=== PATIENT | female | born 1935 | race Caucasian/White ===

== ENCOUNTER 2021-11-25 19:47 | Observation (INO) | payer OTHER ==
[2021-11-25] MEDS ORDERED: ACETAMINOPHEN 1000 MG/100 ML BAG IVPB ONE (20:12)
[2021-11-25] MEDS ORDERED: ONDANSETRON 4 MG/2 ML VIAL IVPUSH ONE ×2 (20:12→23:59)
[2021-11-25 21:20] LABS: BASO % 0.4 % (0-2.0); EOS % 1.2 % (0-4.5); HEMATOCRIT 37.6 % (32.4-45.2); HEMOGLOBIN 13.2 GM/dL (10.7-15.3); MCHC 35.1 g/dl (32.0-36.0); MEAN CELL VOLUME 82.6 fl (80-96); MEAN PLT VOLUME 8.7 fl (7.5-11.1); MONO % 6.4 % (3.8-10.2); PLATELET COUNT 425 10^3/uL (134-434); RBC 4.55 M/mm3 (3.60-5.2); RDW 15.1 % (11.6-15.6); WHITE BLOOD COUNT 8.5 K/mm3 (4.0-10.0)
[2021-11-25 21:25] LABS: CALCIUM 9.5 mg/dL (8.5-10.1); INR 1.1 (0.83-1.09); PROTHROMBIN TIME (PATIENT) 12.7 SEC (9.7-13.0)
[2021-11-25 21:26] LABS: BLOOD UREA NITROGEN 12.8 mg/dL (7-18); MAGNESIUM 1.6 mg/dL (1.8-2.4)
[2021-11-25] MEDS ORDERED: MAGNESIUM SULF 50% (8.12 MEQ/2 ML-1 GM VIAL) IVPB ONE (21:26)
[2021-11-25 21:28] LABS: CREATININE 0.8 mg/dL (0.55-1.3)
[2021-11-25 21:30] LABS: BILIRUBIN,TOTAL 0.6 mg/dL (0.2-1); TOT PROT 7.1 g/dl (6.4-8.2)
[2021-11-25] MEDS ORDERED: MAGNESIUM SULFATE IN WATER 2 GM/50 ML IVPB IVPB ONE (21:31)
[2021-11-25 21:37] LABS: LACTIC ACID 2.5 mmol/L (0.4-2.0)
[2021-11-25] MEDS ORDERED: METOCLOPRAMIDE HCL INJECTION 10 MG/2 ML VIAL IVPB ONE (22:05)
[2021-11-25] MEDS ORDERED: METOCLOPRAMIDE HCL INJECTION 10 MG/2 ML VIAL ONE (22:05)
[2021-11-25] MEDS ORDERED: SODIUM CHLORIDE 0.9% 500 ML INFUS.BAG IV ONE (22:46)
[2021-11-25 22:56] LABS: EPI CELLS 22 /uL (0-25.1); HYALINE CASTS 0 /uL (0-3.1); PH,URINE 8.5 (5.0-8.0); URINE APPEARANCE CLEAR; URINE BACTERIA 3504 /uL (0-1359); URINE BILIRUBIN NEGATIVE (NEGATIVE); URINE COLOR YELLOW; URINE GLUCOSE (UA) NEGATIVE (NEGATIVE); URINE KETONE 3+ (NEGATIVE); URINE LEUK ESTERASE 1+ (NEGATIVE); URINE NITRITE NEGATIVE (NEGATIVE); URINE PROTEIN NEGATIVE (NEGATIVE); URINE RBC 15 /uL (0-23.9); URINE WBC 72 /uL (0-25.8)
[2021-11-25] MEDS ORDERED: CEFTRIAXONE 1,000 MG in DEXTROSE 5%-WATER - 50 ML IVPB ONE (23:28)
[2021-11-25] MEDS ORDERED: CEFTRIAXONE 1 GM/50 ML BAG ONE (23:44)
[2021-11-26] MEDS ORDERED: ONDANSETRON 4 MG/2 ML VIAL ONE (01:03)
[2021-11-26 04:21] VITALS: BMI 31.2
[2021-11-26 08:57] LABS: BASO % 0.3 % (0-2.0); EOS % 0.4 % (0-4.5); HEMATOCRIT 34.4 % (32.4-45.2); HEMOGLOBIN 11.8 GM/dL (10.7-15.3); LYMPH % 13.7 % (8-40); MCH 28.1 pg (25.7-33.7); MCHC 34.3 g/dl (32.0-36.0); MEAN PLT VOLUME 8.6 fl (7.5-11.1); MONO % 11.5 % (3.8-10.2); NEUT % 74.1 % (42.8-82.8); PLATELET COUNT 383 10^3/uL (134-434); RDW 15.8 % (11.6-15.6); WHITE BLOOD COUNT 7.8 K/mm3 (4.0-10.0)
[2021-11-26 09:18] LABS: CALCIUM 8.3 mg/dL (8.5-10.1)
[2021-11-26 09:19] LABS: BLOOD UREA NITROGEN 11.5 mg/dL (7-18); MAGNESIUM 2.1 mg/dL (1.8-2.4)
[2021-11-26 09:22] LABS: CREATININE 0.7 mg/dL (0.55-1.3)
[2021-11-26] MEDS: CEFTRIAXONE 1 GM in DEXTROSE 5%-WATER - 50 ML IVPB SCH (10:45)
[2021-11-26] MEDS: amLODIPine BESYLATE 5 MG TABLET (FP) PO SCH ×2 (13:53→13:59)
[2021-11-26] MEDS: HEPARIN NA (PORCINE) 5,000 UNITS/ML 1ML VIAL SQ SCH (21:13)
[2021-11-27] MEDS: HEPARIN NA (PORCINE) 5,000 UNITS/ML 1ML VIAL SQ SCH ×2 (09:46→21:41)
[2021-11-27] MEDS: amLODIPine BESYLATE 5 MG TABLET (FP) PO SCH (09:46)
[2021-11-27] MEDS: CEFTRIAXONE 1 GM in DEXTROSE 5%-WATER - 50 ML IVPB SCH (09:47)
[2021-11-27] MEDS: ONDANSETRON 4 MG/2 ML VIAL IVPUSH PRN ×3 (10:03→21:43)
[2021-11-27] MEDS: PANTOPRAZOLE 40 MG TABLET PO SCH ×2 (12:17→21:41)
[2021-11-28] MEDS: CEFTRIAXONE 1 GM in DEXTROSE 5%-WATER - 50 ML IVPB SCH (09:08)
[2021-11-28] MEDS: amLODIPine BESYLATE 5 MG TABLET (FP) PO SCH (09:09)
[2021-11-28] MEDS: PANTOPRAZOLE 40 MG TABLET PO SCH ×2 (09:09→21:21)
[2021-11-28] MEDS: POLYETHYLENE GLYCOL (HEALTHYLAX) 3350 17 GM PACKET PO SCH (10:58)
[2021-11-28] MEDS: HEPARIN NA (PORCINE) 5,000 UNITS/ML 1ML VIAL SQ SCH ×2 (10:58→21:19)
[2021-11-28] MEDS: ONDANSETRON 4 MG/2 ML VIAL IVPUSH PRN (21:22)
[2021-11-29] MEDS: PANTOPRAZOLE 40 MG TABLET PO SCH ×2 (11:05→21:47)
[2021-11-29] MEDS: amLODIPine BESYLATE 5 MG TABLET (FP) PO SCH (11:05)
[2021-11-29] MEDS: CEFTRIAXONE 1 GM in DEXTROSE 5%-WATER - 50 ML IVPB SCH (13:03)
[2021-11-29] MEDS: POLYETHYLENE GLYCOL (HEALTHYLAX) 3350 17 GM PACKET PO SCH (13:04)
[2021-11-30] MEDS: CEFTRIAXONE 1 GM in DEXTROSE 5%-WATER - 50 ML IVPB SCH (10:03)
[2021-11-30] MEDS: PANTOPRAZOLE 40 MG TABLET PO SCH (10:03)
[2021-11-30] MEDS: HEPARIN NA (PORCINE) 5,000 UNITS/ML 1ML VIAL SQ SCH (10:03)
[2021-11-30] MEDS: POLYETHYLENE GLYCOL (HEALTHYLAX) 3350 17 GM PACKET PO SCH (10:03)
[2021-11-30] MEDS: amLODIPine BESYLATE 5 MG TABLET (FP) PO SCH (10:04)
[2021-11-30 13:21] VITALS: RESP 18
[2021-11-30 21:37] VITALS: BP 155/72; PULSE 101; TEMP 98.4
== END 2021-11-30 21:15 | disposition home health service (06) ==
LOC: JER 19:47 → JERBED 11-26 00:55 → J7W 11-26 03:59
PROVIDERS: ADMIT Internal Medicine; ATTEND Internal Medicine
PROC: 3E03329 Introduction of Other Anti-infective into Peripheral Vein, Percutaneous Approach (ICD-10-PCS; principal; 2021-11-26)
PROC: 3E033NZ Introduction of Analgesics, Hypnotics, Sedatives into Peripheral Vein, Percutaneous Approach (ICD-10-PCS; 2021-11-26)
PROC: 3E023GC Introduction of Other Therapeutic Substance into Muscle, Percutaneous Approach (ICD-10-PCS; 2021-11-26)
PROC: 3E0337Z Introduction of Electrolytic and Water Balance Substance into Peripheral Vein, Percutaneous Approach (ICD-10-PCS; 2021-11-26)
DX: N39.0 Urinary tract infection, site not specified (principal); R11.2 Nausea with vomiting, unspecified; K52.9 Noninfective gastroenteritis and colitis, unspecified; E83.42 Hypomagnesemia; Z20.822 Contact with and (suspected) exposure to COVID-19; R63.0 Anorexia; R10.9 Unspecified abdominal pain
CPT/HCPCS: 36415; 71045-TC-FY; 74018-TC-FY; 74174-TC; 74220-TC-FY; 74240-TC-FY; 80048; 80053; 81003; 82550; 83605; 83690; 83735; 84484; 85025; 85610; 87045; 87046; 87086; 87186; 93005; 93010; 96365; 96372; 96375; 96376; 99285-25; C9803-CS; G0378; J1644; U0003; U0005

== ENCOUNTER 2022-02-01 05:55 | Day surgery (SDC) | payer OTHER ==
[2022-01-31 07:53] VITALS: BMI 28.5
[2022-02-01] MEDS ORDERED: EPINEPHrine 1:10,000 (P-F SYR) 1 MG/10 ML DISP.SYRIN IM ONE (12:19)
[2022-02-01] MEDS ORDERED: EPINEPHrine 1:10,000 (P-F SYR) 1 MG/10 ML DISP.SYRIN ONE (12:39)
[2022-02-01 12:56] VITALS: TEMP 97.9
[2022-02-01 13:04] VITALS: RESP 18
[2022-02-01 13:55] VITALS: BP 122/67; PULSE 63
== END 2022-02-01 13:44 | disposition home or self-care (01) ==
LOC: JASU-ENDO 05:55
PROVIDERS: ATTEND Student in an Organized Health Care Education/Training Program
PROC: 0DB78ZX Excision of Stomach, Pylorus, Via Natural or Artificial Opening Endoscopic, Diagnostic (ICD-10-PCS; 2022-02-01)
PROC: 0DB68ZX Excision of Stomach, Via Natural or Artificial Opening Endoscopic, Diagnostic (ICD-10-PCS; 2022-02-01)
PROC: 0DB98ZX Excision of Duodenum, Via Natural or Artificial Opening Endoscopic, Diagnostic (ICD-10-PCS; principal; 2022-02-01 11:00)
DX: K29.50 Unspecified chronic gastritis without bleeding (principal); K44.9 Diaphragmatic hernia without obstruction or gangrene
CPT/HCPCS: 88305-TC; 88342-TC

== ENCOUNTER 2023-05-16 04:23 | Day surgery (SDC) | payer OTHER ==
[2023-05-10 16:34] VITALS: BMI 27.9
[2023-05-16] MEDS ORDERED: BUPIVACAINE HCL/PF 0.75% 10 ML VIAL ONE (07:42)
[2023-05-16] MEDS ORDERED: LIDOCAINE HCL/PF 1% SDV 5ML VIAL ONE (07:42)
[2023-05-16 08:51] VITALS: RESP 18
[2023-05-16] MEDS ORDERED: ACETAMINOPHEN 500 MG TABLET (FP) PO PRN (09:54)
[2023-05-16] MEDS: LIDOCAINE HCL 1% PRESERVATIVE FREE - 30ML VIAL IJ ONE (11:43)
[2023-05-16] MEDS: BUPIVACAINE HCL/PF 0.75% 10 ML VIAL NR ONE ×2 (11:48)
[2023-05-16 12:46] VITALS: BP 140/72; PULSE 58; TEMP 97.9
== END 2023-05-16 12:32 | disposition home or self-care (01) ==
LOC: JASU-SURG 04:23
PROVIDERS: ATTEND Pain Medicine Pain Medicine
PROC: 3E0T33Z Introduction of Anti-inflammatory into Peripheral Nerves and Plexi, Percutaneous Approach (ICD-10-PCS; 2023-05-16)
PROC: 3E0T3BZ Introduction of Anesthetic Agent into Peripheral Nerves and Plexi, Percutaneous Approach (ICD-10-PCS; principal; 2023-05-16 10:45)
DX: M47.816 Spondylosis without myelopathy or radiculopathy, lumbar region (principal)
CPT/HCPCS: 76000-TC-FY

== ENCOUNTER 2023-08-17 03:57 | Day surgery (SDC) | payer OTHER ==
[2023-06-28 16:28] VITALS: BMI 27.9
[~2023-08-17 03:57] MED LIST: ACETAMINOPHEN 500 MG TABLET (FP) PO PRN
[2023-08-17] MEDS ORDERED: BUPIVACAINE HCL/PF 0.5% (5MG/ML) 10 ML VIAL ONE (08:05)
[2023-08-17] MEDS ORDERED: LIDOCAINE HCL/PF 2% SDV 5ML VIAL ONE (08:05)
[2023-08-17] MEDS ORDERED: DEXAMETHASONE SOD PHOSPHATE 10 MG/1 ML VIAL ONE (08:06)
[2023-08-17] MEDS ORDERED: LIDOCAINE HCL/PF 1% SDV 5ML VIAL ONE ×2 (08:06→10:55)
[2023-08-17 10:48] VITALS: RESP 16
[2023-08-17 12:50] VITALS: BP 120/56; PULSE 62; TEMP 98
[2023-08-17] MEDS ORDERED: ACETAMINOPHEN 500 MG TABLET (FP) PO PRN (13:52)
== END 2023-08-17 12:58 | disposition home or self-care (01) ==
LOC: JASU-SURG 03:57
PROVIDERS: ATTEND Pain Medicine Pain Medicine
PROC: 01HY3MZ Insertion of Neurostimulator Lead into Peripheral Nerve, Percutaneous Approach (ICD-10-PCS; principal; 2023-08-17 11:55)
DX: G89.4 Chronic pain syndrome (principal); M54.50 Low back pain, unspecified
CPT/HCPCS: 64555; C1778; 76000-TC-FY; J1100